=== PATIENT | female | born 1945 | race Caucasian/White ===

== ENCOUNTER 2019-01-01 15:40 | Emergency (ER) | payer OTHER ==
[~2019-01-01] VITALS: Ht 167.6 cm; Wt 122.7 kg
[2019-01-01] MEDS ORDERED: BACTRIM DS1 TAB PO (16:40)
[2019-01-01] MEDS ORDERED: METRONIDAZOL500 MG PO (16:40)
[2019-01-01 16:48] VITALS: BP 181/96
== END 2019-01-01 16:55 | disposition home or self-care (01) | DRG 392 ==
LOC: ED 15:40
DX: R10.32 Left lower quadrant pain (principal); K57.30 Diverticulosis of large intestine without perforation or abscess without bleeding; I10 Essential (primary) hypertension; H40.9 Unspecified glaucoma; Z85.42 Personal history of malignant neoplasm of other parts of uterus; Z53.20 Procedure and treatment not carried out because of patient's decision for unspecified reasons